=== PATIENT | male | born 1965 | race African-American/Black ===

== ENCOUNTER 2017-04-12 19:51 | Emergency (ER) | payer BC, MEDICAID ==
[~2017-04-12] VITALS: Ht 177.8 cm; Wt 72.6 kg
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
[2017-04-12 21:27] VITALS: BP 136/84
== END 2017-04-12 20:12 | disposition left against medical advice (07) ==
LOC: EMR 20:12
DX: M25.511 Pain in right shoulder (principal); Z53.21 Procedure and treatment not carried out due to patient leaving prior to being seen by health care provider
CPT/HCPCS: 99281

== ENCOUNTER 2019-04-23 22:11 | Emergency (ER) | payer MEDICARE, MEDICAID ==
[~2019-04-23] VITALS: Ht 180.3 cm; Wt 79.4 kg
--- NOTE | 2019-04-23 22:36 | NUR ---
ED Nurse Note: Patient presents with complaints of left sided numbness upper and lower extremity. Patient reports previous diagnosis of neuropathy.
[2019-04-23 22:37] VITALS: BP 135/87
[2019-04-23] MEDS ORDERED: GABAPENTIN300 MG ORAL (23:00)
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
[2019-04-23 23:04] VITALS: BP 135/87
--- NOTE | 2019-04-23 23:04 | NUR ---
ED Nurse Note: Patient cleared for discharge. Patient verbalized understanding of discharge instructions. PAtient escorted to discharge desk. PAtient departed with all belongings.
== END 2019-04-23 23:04 | disposition home or self-care (01) ==
LOC: EMR 22:37
DX: R20.2 Paresthesia of skin (principal); F17.200 Nicotine dependence, unspecified, uncomplicated
CPT/HCPCS: 99282

== ENCOUNTER 2019-05-04 08:09 | Emergency (ER) | payer MEDICARE, MEDICAID ==
[~2019-05-04] VITALS: Ht 180.3 cm; Wt 79.4 kg
[~2019-05-04 08:09] MED LIST: GABAPENTIN300 MG ORAL
[2019-05-04 08:13] VITALS: BP 124/86
[2019-05-04] MEDS ORDERED: NKM (08:16)
[2019-05-04] MEDS ORDERED: OCUFLOX5 ML BOTH EYES (08:36)
[2019-05-04 08:38] VITALS: BP 118/85
--- NOTE | 2019-05-04 08:38 | NUR ---
ER DISCHARGE NOTE: PT WAS SEEN DUE TO BILATERAL EYE REDNESS. Patient is cleared to be discharged per ERMD, pt is aox4, on room air, with stable vital signs. pt was given dc and prescription instructions, pt was able to verbalize understanding, pt id band removed. pt is able to ambulate with steady gait. pt took all belongings.
--- NOTE | 2019-05-04 09:27 | Emergency Room Report ---
History of Present Illness General Chief Complaint: Eye Problems Source: Patient Present Illness [facility] .53-year-old male presents ED for evaluation. complaining of bilateral eye pain and discharge x1 week. Pain is burning, 4 out of 10, nonradiating. Denies photophobia or blurry vision. Denies sick contacts or recent travel. No other aggravating relieving factors. Denies any other associated symptoms Allergies: Coded Allergies: No Known Allergies (Unverified , 04/12/17) Patient History Past Medical History: none Past Surgical History: none Pertinent Family History: none Social History: Denies: smoking, alcohol use, drug use Immunizations: UTD Reviewed Nursing Documentation: PMH: Agreed; PSxH: Agreed Nursing Documentation-PMH Past Medical History: No Stated History Review of Systems All Other Systems: negative except mentioned in HPI Physical Exam Vital Signs Date Time Temp Pulse Resp B/P (MAP) Pulse Ox O2 Delivery O2 Flow Rate FiO2 05/04/19 08:13 97.5 76 16 124/86 (99) 99 05/04/19 08:13 Room Air Sp02 EP Interpretation: reviewed, normal General Appearance: no apparent distress, alert, GCS 15, non-toxic Head: normocephalic, atraumatic Eyes: bilateral eye PERRL, bilateral eye EOMI, bilateral eye visual acuity, bilateral eye Scleral Injection ENT: hearing grossly normal, normal pharynx, no angioedema, normal voice Neck: full range of motion, supple, no meningismus, supple/symm/no masses Respiratory: normal inspection Cardiovascular #1: normal inspection Gastrointestinal: normal inspection Rectal: deferred Genitourinary: no CVA tenderness Musculoskeletal: normal inspection Neurologic: alert, oriented x3, responsive, motor strength/tone normal, sensory intact, speech normal Psychiatric: normal inspection Skin: normal inspection Lymphatic: normal inspection Medical Decision Making Diagnostic Impression: Primary Impression: Conjunctivitis Qualified Codes: H10.33 - Unspecified acute conjunctivitis, bilateral ER Course Hospital Course 53-year-old M presents to ED with bilateral eye redness and watery discharge Differential diagnoses include: conjunctivitis, traumatic iritis, foreign body, corneal abrasion Clinical course Patient placed on stretcher. After initial history, physical exam revealed a middle-aged male no acute distress. There is injected conjunctiva and both eyes. Pupils equally reactive to light bilaterally. No evidence of foreign body. Clinical findings consistent with conjunctivitis. Findings with patient. Will prescribe antibiotics. Safe for discharge with close outpatient follow-up. Will provide referrals Diagnosis - conjunctivitis Stable and discharged to home with prescription for Ocuflox. Followup with PMD/ Optho. Return to ED if symptoms recur or worsen Last Vital Signs Date Time Temp Pulse Resp B/P (MAP) Pulse Ox O2 Delivery O2 Flow Rate FiO2 05/04/19 08:38 97.8 82 15 118/85 100 Room Air Status: improved Disposition: HOME, SELF-CARE Condition: Stable Scripts Ofloxacin (OCUFLOX) 5 Ml Drops 1 DROP BOTH EYES QID for 7 Days, ML Prov: Dakota Salazar MD 05/04/19 Referrals: NON PHYSICIAN (PCP) Jayne Yates Comp. [facility] Patient Instructions: Bacterial Conjunctivitis, [id number] Dakota Salazar MD May 04, 2019 09:27
== END 2019-05-04 08:38 | disposition home or self-care (01) ==
LOC: EMR 08:32
DX: H10.33 Unspecified acute conjunctivitis, bilateral (principal)
CPT/HCPCS: 99282

== ENCOUNTER 2019-05-27 10:54 | Emergency (ER) | payer MEDICARE, MEDICAID ==
[~2019-05-27] VITALS: Ht 180.3 cm; Wt 79.4 kg
[~2019-05-27 10:54] MED LIST changes: +NKM; +OCUFLOX5 ML BOTH EYES
[2019-05-27 11:00] VITALS: BP 138/84
--- NOTE | 2019-05-27 11:10 | NUR ---
ED Nurse Note: PT CAME IN DUE TO BILATERAL EYE DISCOMFORT, REDNESS WITH CONSISTENT TEARING. PT WAS SEEN ON 05/04/19 DUE TO SAME SYMPTOM AND WAS PRESCRIBED WITH AN EYEDROP BUT STILL HAVING EYES DISCOMFORT. AAO X4, AMBULATORY. VSS.
[2019-05-27 12:04] LABS: MEAN CORPUSCULAR VOLUME 103 FL (80-99); PLATELET COUNT 165 K/UL (150-450); RED BLOOD COUNT 4.76 M/UL (4.70-6.10); RED CELL DISTRIBUTION WIDTH 11.9 % (11.6-14.8)
[2019-05-27 12:06] LABS: APPEARANCE,URINE CLEAR; BILIRUBIN, URINE NEGATIVE (NEGATIVE); COLOR,URINE BROWN; GLUCOSE, URINE (UA) NEGATIVE (NEGATIVE); KETONES,URINE 2+ (NEGATIVE); LEUKOCYTE ESTERASE ,URINE 1+ (NEGATIVE); NITRITE,URINE NEGATIVE (NEGATIVE); PH,URINE 8 (4.5-8.0); PROTEIN,URINE 3+ (NEGATIVE); UROBILINOGEN,URINE 4 MG/DL (0.0-1.0)
[2019-05-27 12:13] LABS: ANION GAP 12 mmol/L (5-15); BLOOD UREA NITROGEN 5 mg/dL (7-18); CALCIUM 9.7 MG/DL (8.5-10.1); CARBON DIOXIDE 29 MMOL/L (21-32); CHLORIDE 102 MMOL/L (98-107); POTASSIUM 4.2 MMOL/L (3.5-5.1); SODIUM 143 MMOL/L (136-145)
[2019-05-27 12:17] LABS: ALANINE AMINOTRANSFERASE 82 U/L (12-78); ALBUMIN 4.3 G/DL (3.4-5.0); ALBUMIN/GLOBULIN RATIO 1.2 (1.0-2.7); ALKALINE PHOSPHATASE 71 U/L (46-116); ASPARTATE AMINO TRANSFERASE 85 U/L (15-37); BILIRUBIN,TOTAL 0.9 MG/DL (0.2-1.0)
[2019-05-27] MEDS ORDERED: ZOFRAN4 MG ORAL (12:33)
[2019-05-27] MEDS ORDERED: NAPHCON-A EYE D15 ML OP (12:33)
[2019-05-27 12:42] VITALS: BP 135/81
--- NOTE | 2019-05-27 12:42 | NUR ---
ER DISCHARGE NOTE: Patient is cleared to be discharged per ERMD, pt is aox4, on room air, with stable vital signs. pt was given dc and prescription instructions, pt was able to verbalize understanding, pt id band and iv site removed without complications. pt is able to ambulate with steady gait. pt took all belongings.
--- NOTE | 2019-05-27 13:00 | Diagnostic Imaging Report ---
Indication: Cough Technique: One view of the chest Comparison: none Findings: Lungs and pleural spaces are clear. Heart size is normal Impression: No acute process
--- NOTE | 2019-05-27 16:15 | Emergency Room Report ---
History of Present Illness General Chief Complaint: Eye Problems Source: Patient Present Illness HPI Patient presents emergency department with multiple complaints. Patient states that he drinks a lot of beer and is chronic. He drinks 2 to 3 glasses of beer a day. Today he had some nausea vomiting he states that after he vomited he had some hemoptysis it was only a small amount of blood. He denied any melena. Denies any other complaints. He is feeling much better does have some mild nausea. Denies any abdominal pain. In addition patient also was recently diagnosed with conjunctivitis started on ofloxacin. He states that symptoms got better after 2 weeks application but then it came back again. He does not wear contact lenses denies any visual changes states that the eye is very itchy and very watery teary and there is discharge early in the morning. Denies any pain denies any headache or diarrhea at this time. Symptoms noted to be moderate. No other modifying factors. No other associated signs and symptoms. No other complaints were noted. Allergies: Coded Allergies: No Known Allergies (Unverified , 04/12/17) Patient History Past Medical History: none Past Surgical History: none Pertinent Family History: none Social History: Denies: smoking, alcohol use, drug use Reviewed Nursing Documentation: PMH: Agreed; PSxH: Agreed Nursing Documentation-PMH Past Medical History: No Stated History Review of Systems All Other Systems: negative except mentioned in HPI Physical Exam Vital Signs Date Time Temp Pulse Resp B/P (MAP) Pulse Ox O2 Delivery O2 Flow Rate FiO2 05/27/19 11:00 98.2 64 21 138/84 (102) 96 Room Air Sp02 EP Interpretation: reviewed, normal General Appearance: normal inspection, well appearing, no apparent distress, alert Head: atraumatic Eyes: bilateral eye normal inspection ENT: normal ENT inspection, hearing grossly normal, normal voice Neck: normal inspection, full range of motion, supple, no bony tend Respiratory: normal inspection, lungs clear, normal breath sounds, no respiratory distress, no retraction, no wheezing Cardiovascular #1: regular rate, rhythm, no edema Gastrointestinal: normal inspection, normal bowel sounds, non tender, soft, no guarding, no hernia Genitourinary: no CVA tenderness Musculoskeletal: normal inspection, back normal, normal range of motion Neurologic: normal inspection, alert, responsive, speech normal Psychiatric: normal inspection, judgement/insight normal, mood/affect normal Medical Decision Making Diagnostic Impression: Primary Impression: Allergic conjunctivitis Additional Impressions: Conjunctivitis Vomiting Hemoptysis ER Course Patient presents emergency department today complaining of vomiting. Differential considerations include gastritis, esophagitis, esophageal varices, Sanna-Krause tear, gastroenteritis just name a few. Other considerations include discharge of the eye which is consistent with allergic conjunctivitis, episcleritis, conjunctivitis bacterial just name a few. Given the severity of the patient's presentation I felt this is a highly complex patient. This patient required extensive workup. Patient's laboratory work-up was not impressive. Patient was monitored emergency department had no further episodes of vomiting. Patient's vital signs within normal limits. Therefore I felt the patient likely had a mild Sanna-Krause tear from throwing up in the first place. However patient was advised to take Pepcid. Patient was advised to decrease his drinking. In addition patient had evidence of conjunctivitis. Given the patient's history and exam however there is conjunctive injected in both the eyes and feel the symptoms are more consistent with allergic conjunctivitis. Patient was started on Naphcon. Patient is advised to follow-up outpatient with ophthalmology and GI and primary care. He was given referrals as well however he might belong to HMO he was advised to contact his HMO. Patient is advised to follow up with primary doctor in 2-3 days and return the emergency room for any worsening symptoms and as needed. Labs Test 05/27/19 11:50 White Blood Count 7.0 K/UL (4.8-10.8) Red Blood Count 4.76 M/UL (4.70-6.10) Hemoglobin 16.0 G/DL (14.2-18.0) Hematocrit 49.0 % (42.0-52.0) Mean Corpuscular Volume 103 FL (80-99) Mean Corpuscular Hemoglobin 33.7 PG (27.0-31.0) Mean Corpuscular Hemoglobin Concent 32.7 G/DL (32.0-36.0) Red Cell Distribution Width 11.9 % (11.6-14.8) Platelet Count 165 K/UL (150-450) Mean Platelet Volume 6.7 FL (6.5-10.1) Neutrophils (%) (Auto) % (45.0-75.0) Lymphocytes (%) (Auto) % (20.0-45.0) Monocytes (%) (Auto) % (1.0-10.0) Eosinophils (%) (Auto) % (0.0-3.0) Basophils (%) (Auto) % (0.0-2.0) Differential Total Cells Counted 100 Neutrophils % (Manual) 87 % (45-75) Lymphocytes % (Manual) 7 % (20-45) Monocytes % (Manual) 6 % (1-10) Eosinophils % (Manual) 0 % (0-3) Basophils % (Manual) 0 % (0-2) Band Neutrophils 0 % (0-8) Platelet Estimate Adequate Platelet Morphology Normal Macrocytosis 1+ Urine Color Brown Urine Appearance Clear Urine pH 8 (4.5-8.0) Urine Specific Comstock 1.010 (1.005-1.035) Urine Protein 3+ (NEGATIVE) Urine Glucose (UA) Negative (NEGATIVE) Urine Ketones 2+ (NEGATIVE) Urine Blood Negative (NEGATIVE) Urine Nitrite Negative (NEGATIVE) Urine Bilirubin Negative (NEGATIVE) Urine Urobilinogen 4 MG/DL (0.0-1.0) Urine Leukocyte Esterase 1+ (NEGATIVE) Urine RBC 0 /HPF (0 - 0) Urine WBC 0-2 /HPF (0 - 0) Urine Squamous Epithelial Cells None /LPF (NONE/OCC) Urine Bacteria None /HPF (NONE) Urine Mucus Moderate /LPF (NONE/OCC) Sodium Level 143 MMOL/L (136-145) Potassium Level 4.2 MMOL/L (3.5-5.1) Chloride Level 102 MMOL/L (98-107) Carbon Dioxide Level 29 MMOL/L (21-32) Anion Gap 12 mmol/L (5-15) Blood Urea Nitrogen 5 mg/dL (7-18) Creatinine 1.0 MG/DL (0.55-1.30) Estimat Glomerular Filtration Rate > 60 mL/min (>60) Glucose Level 117 MG/DL (74-106) Calcium Level 9.7 MG/DL (8.5-10.1) Total Bilirubin 0.9 MG/DL (0.2-1.0) Aspartate Amino Transf (AST/SGOT) 85 U/L (15-37) Alanine Aminotransferase (ALT/SGPT) 82 U/L (12-78) Alkaline Phosphatase 71 U/L (46-116) Troponin I 0.000 ng/mL (0.000-0.056) Total Protein 7.9 G/DL (6.4-8.2) Albumin 4.3 G/DL (3.4-5.0) Globulin 3.6 g/dL Albumin/Globulin Ratio 1.2 (1.0-2.7) Lipase 394 U/L (73-393) EKG Diagnostic Results Rate: normal Rhythm: NSR ST Segments: no acute changes Rhythm Strip Diag. Results EP Interpretation: yes Rate: 57 Rhythm: NSR, no PVC's, no ectopy Chest X-Ray Diagnostic Results Chest X-Ray Diagnostic Results : Chest X-Ray Ordered: Yes # of Views/Limited/Complete: 1 View EP Interpretation: No Interpretation: no consolidation Impression: No acute disease Last Vital Signs Date Time Temp Pulse Resp B/P (MAP) Pulse Ox O2 Delivery O2 Flow Rate FiO2 05/27/19 12:42 98.6 78 16 135/81 98 Room Air Status: improved Disposition: HOME, SELF-CARE Condition: Stable Scripts Ondansetron (Zofran) 4 Mg Tablet 4 MG ORAL Q6H PRN for Nausea & Vomiting, #10 TAB 0 Refills Prov: Levon Arredondo MD 05/27/19 Naphazoline Hcl/Phenir Mal (NAPHCON-A EYE DROPS) 15 Ml Drops 2 DROP OP QID for itchy for 14 Days, ML Prov: Levon Arredondo MD 05/27/19 Referrals: Louis Strickland MD, Payam MD Patient Instructions: Allergic Conjunctivitis, [id number] Levon Arredondo MD May 27, 2019 16:15
== END 2019-05-27 12:42 | disposition home or self-care (01) ==
LOC: EMR 12:11
DX: H10.10 Acute atopic conjunctivitis, unspecified eye (principal); R11.2 Nausea with vomiting, unspecified; R04.2 Hemoptysis
CPT/HCPCS: 36415; 71045; 80053; 81003; 83690; 84484; 85007; 85025; 93005; 96361; 96374; 96375; 99284; J2405; S0028

== ENCOUNTER 2020-06-15 19:47 | Emergency (ER) | payer MEDICARE, MEDICAID ==
[~2020-06-15] VITALS: Ht 180.3 cm; Wt 79.4 kg
[~2020-06-15 19:47] MED LIST changes: +NAPHCON-A EYE D15 ML OP; +ZOFRAN4 MG ORAL
--- NOTE | 2020-06-15 20:07 | Emergency Room Report ---
History of Present Illness General Chief Complaint: Pain Source: Patient Present Illness HPI Patient is a 55-year-old male presents for increased right-sided shoulder pain. Onset of symptoms over the past 3 days. Reports having constant pain unchanged by movement. He states pain is to the medial shoulder. Associated arm numbness. Denies recent trauma. States he drinks alcohol regularly. Denies any abdominal discomfort or cough. Allergies: Coded Allergies: No Known Allergies (Unverified , 04/12/17) COVID-19 Screening Contact w/high risk pt: No Experienced COVID-19 symptoms?: No COVID-19 Testing performed EDITOR MAP: No Patient History Past Medical History: see triage record Reviewed Nursing Documentation: PMH: Agreed; PSxH: Agreed Nursing Documentation-PMH Past Medical History: No Stated History Review of Systems All Other Systems: negative except mentioned in HPI Physical Exam Vital Signs Date Time Temp Pulse Resp B/P (MAP) Pulse Ox O2 Delivery O2 Flow Rate FiO2 06/15/20 19:51 98.2 87 126/79 (95) 99 Room Air Sp02 EP Interpretation: reviewed, normal General Appearance: normal inspection, well appearing, no apparent distress, alert, GCS 15, non-toxic Head: atraumatic ENT: normal ENT inspection, hearing grossly normal, normal voice Neck: normal inspection, full range of motion, supple, no bony tend Respiratory: normal inspection, lungs clear, normal breath sounds, no respiratory distress, no retraction, no wheezing Cardiovascular #1: regular rate, rhythm, no edema Gastrointestinal: normal inspection, normal bowel sounds, non tender, soft, no guarding, no hernia Genitourinary: no CVA tenderness Musculoskeletal: normal inspection, back normal, normal range of motion, other - Tenderness to the medial scapula localized. Neurologic: alert, motor strength/tone normal, automation clerk III-XII nml as tested, oriented x3, responsive, speech normal, normal inspection Psychiatric: normal inspection, judgement/insight normal, mood/affect normal Medical Decision Making Diagnostic Impression: Primary Impression: Shoulder pain ER Course Patient presented for right shoulder pain. Differential diagnosis include was not contusion, fracture, neuropathy, among others. X-ray imaging was ordered due to patient's complaint of pain. Patient does not appear to have any evidence of abdominal tenderness or other evidence of external trauma. He has normal range of motion to his shoulder. Patient was noted to have significant tenderness to the medial scapula this localizes pain fairly well.X-ray imaging showed calcification to the right shoulder. Patient was advised of x-ray findings. He was given prescription for medications for symptomatic management. He was advised alcohol cessation. He was advised to follow-up with Dr. Sullivan for further evaluation and treatment and possible MRI. He was advised to return if worse. This medical record is generated with [employer] automobile lights assembler software. There may be some automobile lights assembler discrepancies related to use of this software. Last Vital Signs Date Time Temp Pulse Resp B/P (MAP) Pulse Ox O2 Delivery O2 Flow Rate FiO2 06/15/20 19:51 98.2 87 126/79 (95) 99 Room Air Status: improved Disposition: HOME, SELF-CARE Condition: Stable Scripts Omeprazole (Omeprazole) 20 Mg Tab.rap.dr 20 MG PO DAILY, #30 TAB Prov: Imer Bahena MD 06/16/20 Gabapentin* (GABAPENTIN*) 400 Mg Capsule 400 MG ORAL THREE TIMES A DAY, #30 CAP 0 Refills Prov: Imer Bahena MD 06/16/20 Francisco Webb MD Jun 15, 2020 20:07
[2020-06-15 20:33] VITALS: BP 126/79
[2020-06-15] MEDS ORDERED: HYDROcodone/Acetamin 5/325 tab ORAL ONE (20:45)
--- NOTE | 2020-06-15 20:56 | Diagnostic Imaging Report ---
EXAM: XR Right Shoulder Complete, 2 or More Views CLINICAL HISTORY: PAIN TECHNIQUE: Two or more views of the right shoulder. COMPARISON: No relevant prior studies available. FINDINGS: Bones/joints: No acute fracture or dislocation. Degenerative changes of the glenohumeral and AC joints. 14 mm ossification about the shoulder. Soft tissues: No radiodense foreign body. IMPRESSION: No acute fracture or dislocation.
[2020-06-15] MEDS ORDERED: OMEPRAZOLE20 M4 PO ×2 (21:00)
[2020-06-15] MEDS ORDERED: GABAPENTIN400 MG ORAL ×2 (21:00)
[2020-06-15 21:05] VITALS: BP 122/70
[2020-06-16] MEDS ORDERED: GABAPENTIN400 MG ORAL (10:41)
[2020-06-16] MEDS ORDERED: OMEPRAZOLE20 M4 PO (10:41)
--- NOTE | 2020-06-16 16:12 | Diagnostic Imaging Report ---
Indication: Chest pain Technique: One view of the chest Comparison: 05/27/2019 Findings: Lungs and pleural spaces are clear. Heart size is normal. No significant change Impression: No acute process
== END 2020-06-15 21:05 | disposition home or self-care (01) ==
LOC: EMR 20:05
DX: M25.511 Pain in right shoulder (principal); R20.0 Anesthesia of skin
CPT/HCPCS: 71045; 99284